=== PATIENT | male | born 1970 | race Two or more races ===

== ENCOUNTER 2023-04-14 16:16 | Outpatient (CLI) | payer OTHER | END 2023-04-14 16:22 | disposition home or self-care (01) | LOC: RAD 16:16 | PROVIDERS: ATTEND Orthopaedic Surgery | DX: M25.511 Pain in right shoulder (principal); M25.561 Pain in right knee; M25.562 Pain in left knee ==

== ENCOUNTER 2023-06-20 08:51 | Outpatient (CLI) | payer OTHER ==
[2023-06-20 09:52] LABS: HEMATOCRIT 44.9 % (39.0-48.0); HEMOGLOBIN 14.7 g/dL (13-16.00); MEAN CORPUSCULAR HEMOGLOBIN 27.6 pg (27.00-32.0); MEAN CORPUSCULAR HGB CONC 32.8 g/dl (32.0-36.0); PLATELET COUNT 333 K/uL (150-450); RED BLOOD COUNT 5.34 M/uL (4.00-6.00); RED CELL DISTRIBUTION WIDTH 14.2 % (11.5-14.5)
[2023-06-20 10:04] LABS: URINE APPEARANCE Clear; URINE BILIRRUBIN Negative (NEGATIVE); URINE BLOOD Negative; URINE COLOR Yellow; URINE LEUKOCYTE Negative; URINE NITRATE Negative; URINE PROTEIN 30 (NEGATIVE); URINE UROBILINOGEN 0.2 E.U./dl
[2023-06-20 10:08] LABS: URINE BACTERIA 8.8 uL (0.0-1933)
[2023-06-20 10:25] LABS: INR < 0.93; PARTIAL THROMBOPLASTIN TIME 29.4 SECONDS (22.0-34.0); PROTHROMBIN TIME 9.7 SECONDS (9.0-11.5)
[2023-06-20 10:33] LABS: COL EPI 138 SECONDS (82-175)
[2023-06-20 10:38] LABS: ALBUMIN 3.9 gm/dL (3.4-5.0); BILIRUBIN TOTAL 0.33 mg/dL (0.3-1.2); CALCIUM 9.9 mg/dL (8.5-10.1); CREATININE SERUM 1.06 mg/dL (0.70-1.30); GFR 72.8; GLOBULINA 3.9 G/DL (2.4-3.5); POTASSIUM 5.42 mEq/L (3.5-5.1); TOTAL PROTEIN 7.8 gm/dL (6.4-8.2)
[2023-06-20 10:54] LABS: URINE EPITHELIAL CELLS 1.3 uL (0.0-38.8); URINE GLUCOSE >=1000 MG/DL (NEGATIVE); URINE RBC 1.4 uL (0.0-20.8)
== END 2023-06-20 08:54 | disposition home or self-care (01) ==
LOC: RAD 08:51
PROVIDERS: ATTEND Orthopaedic Surgery
DX: D64.9 Anemia, unspecified (principal); E88.89 Other specified metabolic disorders; D68.8 Other specified coagulation defects; N39.0 Urinary tract infection, site not specified; Z22.322 Carrier or suspected carrier of Methicillin resistant Staphylococcus aureus; Z76.89 Persons encountering health services in other specified circumstances; M25.511 Pain in right shoulder; M25.512 Pain in left shoulder; I10 Essential (primary) hypertension

== ENCOUNTER 2023-07-05 12:15 | Day surgery (SDC) | payer OTHER ==
[2023-07-05] MEDS ORDERED: CEFAZOLIN SODIUM 1,000 MG VIAL ONE (13:02)
[2023-07-05] MEDS ORDERED: EPINEPHRINE HCL/PF 1 MG/ML AMPUL ONE (13:59)
[2023-07-05] MEDS ORDERED: LIDOCAINE HCL 1%/Epi 20ML VIAL IJ ONE ×2 (13:59→14:30)
[2023-07-05] MEDS ORDERED: EPINEPHRINE HCL/PF 1 MG/ML AMPUL IR ONE (14:30)
[2023-07-05] MEDS ORDERED: CEFAZOLIN SODIUM 2,000 MG in 0.9 % SODIUM CHLORIDE 100 ML IV ONE (14:30)
[2023-07-05] MEDS ORDERED: BUPIVACAINE HCL 30 ML VIAL IJ ONE (14:30)
[2023-07-05] MEDS ORDERED: MORPHINE SULFATE 4 MG/ML VIAL IV ONE (16:50)
[2023-07-05] MEDS ORDERED: ONDANSETRON HCL 2 MG/ML VIAL ONE (18:20)
== END 2023-07-05 21:15 | disposition home or self-care (01) ==
LOC: CIR.AMB 12:15
PROVIDERS: ATTEND Orthopaedic Surgery
DX: M75.121 Complete rotator cuff tear or rupture of right shoulder, not specified as traumatic (principal); M65.861 Other synovitis and tenosynovitis, right lower leg; M19.011 Primary osteoarthritis, right shoulder

== ENCOUNTER 2025-01-21 10:35 | Outpatient (CLI) | payer OTHER | END 2025-01-21 10:43 | disposition home or self-care (01) | LOC: RAD 10:35 | PROVIDERS: ATTEND Orthopaedic Surgery | DX: M17.0 Bilateral primary osteoarthritis of knee (principal); M21.161 Varus deformity, not elsewhere classified, right knee; M21.162 Varus deformity, not elsewhere classified, left knee ==